=== PATIENT | female | born 1980 | race Caucasian/White ===

== ENCOUNTER 2016-10-13 06:00 | Inpatient (IN) | payer OTHER ==
[2016-10-13] MEDS ORDERED: AMPICILLIN SODIUM 2 GM in NS 100 ML IV ONE (06:51)
[2016-10-13] MEDS ORDERED: TERBUTALINE SULFATE 1 MG/ML VIAL IV PRN (06:51)
[2016-10-13] MEDS ORDERED: OLIVE OIL 118 ML BTL MISC PRN (06:51)
[2016-10-13] MEDS ORDERED: LR 1,000 ML IV PRN (06:51)
[2016-10-13] MEDS ORDERED: EPSOM SALT 454 GM TP PRN (06:51)
[2016-10-13] MEDS ORDERED: IBUPROFEN 600 MG TAB PO PRN (06:51)
[2016-10-13] MEDS ORDERED: OXYTOCIN/RINGERS LACTATE 1,000 ML IV PRN (06:51)
[2016-10-13 07:56] LABS: % IMMATURE GRANULYOCYTES 0.5 % (0.0-1.1); ABSOLUTE IMMATURE GRANULOCYTES 0.04 10^3/uL (0.00-0.10); ADD DIFF? NO; ADD MORPH? NO; ADD SCAN? NO; ATYPICAL LYMPHOCYTE FLAG 10 (0-99); FRAGMENT RBC FLAG 0 (0-99); HEMATOCRIT 40.2 % (38.0-47.0); HEMOGLOBIN 13.8 g/dL (12.6-16.3); LEFT SHIFT FLG 0 (0-99); LIPEMIA HEMOLYSIS FLAG 90 (0-99); MEAN CELL HEMOGLOBIN 31.2 pg (27.9-34.1); MEAN CELL HEMOGLOBIN CONCENTR. 34.3 g/dL (32.4-36.7); MEAN CELL VOLUME 90.7 fL (81.5-99.8); MEAN PLATELET VOLUME 9.9 fL (8.7-11.7); PLATELET CLUMPS FLAG 0 (0-99); PLATELET COUNT 213 10^3/uL (150-400); RED BLOOD CELL COUNT 4.43 10^6/uL (4.18-5.33); RED CELL DISTRIBUTION WIDTH 13.2 % (11.5-15.2)
[2016-10-13] MEDS ORDERED: LR 500 ML IV PRN (08:07)
[2016-10-13] MEDS ORDERED: OXYTOCIN/RINGERS LACTATE 500 ML IV SCH (08:30)
--- NOTE | 2016-10-13 10:04 | GHP ---
[f rep st] PREOP HISTORY AND PHYSICAL DATE OF ADMISSION: 10/13/2016 ADMITTING DIAGNOSIS: Intrauterine at 40-0/7 weeks' gestation, for elective induction of l abor. HISTORY OF PRESENT ILLNESS: The patient is a 36-year-old 3 para 1-0-1-1, with an EDC of that was set by an 8-week ultrasound. She has had good care at [facility] since registration at 8 weeks' gestation, and has progressed to 40-0/7 weeks' gestation. She has had mild contractions, nothing regular, and desires elective induction of labor. Her 1st baby was s pontaneously delivered at 40 weeks, and patient desires to deliver soon. Her course has be en complicated by advanced maternal age. She has had negative Verifi screening and negative ultraso unds and reassuring course, early 1st trimester alcohol use, none now. She had a short in [facility]. History of PIH in labor with her last baby, history of a cervical LEEP with a term delivery since. She has had ultrasounds for growth because her 20-week ultrasound the estimated weigh t was 95th percentile. Followup ultrasound was reassuring. This patient was seen in the office on the and had a Harding catheter placed in the cervix for cervical ripening, and she presented on t he morning of the for Pitocin induction. PAST OBSTETRICAL HISTORY: In November 2009, she had an elective termination. In April of 2015 she had a viable female, 6 pounds 13 ounces, spontaneous labor at 40-3/7 weeks' gestation. She had thick meconium and a tight nuchal cord. Baby eventually did well, and then this is her next pregnan cy. PAST GYNECOLOGICAL HISTORY: She had a normal menstrual triad, with menarche at 13, interval every 2 8 days, length of 5 days. Her periods started again in August of 2015 after the of her daughter , and she was not sure she was in the 1st trimester. In her 1st labor she had elevated blo od pressures, had negative labs. She never developed signs of severe preeclampsia and did not recei ve magnesium; she was just watched carefully. PAST MEDICAL HISTORY: History of anxiety/depression, history of alcohol use, history of a fractured right clavicle twice. PAST SURGICAL HISTORY: She had egg donation in 2012, a cervical LEEP in 2003, dental surgery, tonsils and wisdom teeth extraction, and a d and C with her last baby. She has mil d exercise-induced asthma. ALLERGIES: She is allergic to latex and bees. No known drug allergies. MEDICATIONS: Include vitamins, DHA, and Tums. LABS: She is A positive, antibody negative, RPR nonreactive, rubella immune, hepatitis negative, HI V negative. Cystic fibrosis, SMA, fragile X negative. Pap normal. Gonorrhea and chlamydia normal. She had GBS bacteriuria in her first trimester and is treated today. Verifi was normal. AFP was normal. 1-hour GTT was normal, 120. Hemoglobin 35.8. SOCIAL HISTORY: Patient is . She lives with her . 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 She denies tobacco, had alcohol in the 1st trimester, and none now. No drug use. FAMILY HISTORY: Father of congestive heart failure at age 60. Sister has Yoseph's. Patern al grandfather had alcoholism. Maternal grandmother of breast cancer in her 60s. Paternal gra ndmother had ovarian cancer. OBJECTIVE: VITAL SIGNS: Today she is afebrile. Vital signs are stable. heart tones are in the 120s, reactive, moderate variability, category 1. Contractions are irregular. The patient has a Harding catheter in place. Deferred cervical check at this point. ASSESSMENT AND PLAN: A 36-year-old 3 para 1-0-1-1, at 40 weeks' gestation, for elective ind uction of labor. Patient is on Pitocin per protocol. We will increase the dose to develop a good u terine contraction pattern. I will discontinue the Harding and perform artificial rupture of membrane s when she has a good contraction pattern. The patient does desire an epidural for pain control. /[id number]/MODL
--- NOTE | 2016-10-13 11:00 | OBPROG ---
OBG Labor Progress Note Assessment/Plan: Assessment: 36 y/o @ 40 weeks for IOL doing well Plan: AROM now and will continue to dose pitocin to achieve adequate contractions. Pt will desire an epidural for pain control. 10/13/16 10:59 Subjective: Pt is feeling mild contractions. Good FM. Objective: 10/13/16 07:45 Patient ABO/Rh A POSITIVE 10/13/16 07:45 - SVE Dilation (cm): 5 Effacement (%): 90 Station: -2 Ladd Current Contraction Pattern: Irregular FHR (bpm): 120 FHR Pattern Variability: Moderate FHR Category: 1 Membranes: AROM Amniotic Fluid Color: Clear Oxytocin Orders Assessment - Pre-Induction/Augmentation Assessment Gestational Age: 40 week(s) and 0 day(s) ICD10 Worksheet Patient Problems: Problems Problem Status Onset (spontaneous vaginal delivery) Acute
[2016-10-13] MEDS ORDERED: fentaNYL 2MCG/ML/BUP 0.1% RTU 100 ML BAG EP ONE (12:45)
[2016-10-13] MEDS ORDERED: BUPIVACAINE 0.25% 30 ML SDV ONE (12:46)
[2016-10-13] MEDS ORDERED: PHENYLEPHRINE HCL 100 MCG/ML SYR ONE (12:46)
[2016-10-13] MEDS ORDERED: fentaNYL 100 MCG/2 ML INJ ONE (12:47)
[2016-10-13] MEDS ORDERED: LIDOCAINE 1% 300 MG/30 ML SDV ONE (13:55)
--- NOTE | 2016-10-13 13:55 | OBPROG ---
OBG Labor Progress Note Assessment/Plan: Assessment: 36 y/o @ 40 weeks for IOL doing well Plan: Good cervical progress and status is overall reassuring. Continue pitocin. 10/13/16 10:59 10/13/16 13:54 Subjective: Pt is now comfortable with her epidural. She was feeling increased contraction intensity. Objective: 10/13/16 07:45 Patient ABO/Rh A POSITIVE 10/13/16 07:45 - SVE Dilation (cm): 7 Effacement (%): 90 Station: 0 Ladd Current Contraction Pattern: Regular (Q 4) FHR (bpm): 120 FHR Pattern Variability: Moderate FHR Category: 1 Membranes: AROM Amniotic Fluid Color: Clear Oxytocin Orders Assessment - Pre-Induction/Augmentation Assessment Gestational Age: 40 week(s) and 0 day(s) ICD10 Worksheet Patient Problems: Problems Problem Status Onset (spontaneous vaginal delivery) Acute
[2016-10-13] MEDS ORDERED: MISOPROSTOL 200 MCG TAB ONE (13:56)
[2016-10-13] MEDS ORDERED: OLIVE OIL 118 ML BTL ONE (13:56)
[2016-10-13] MEDS ORDERED: AMMONIA AROMATIC 1 EACH AMP IH ONE (13:56)
[2016-10-13] MEDS: AMPICILLIN SODIUM 1 GM in NS 100 ML IV SCH ×2 (14:00→16:18)
--- NOTE | 2016-10-13 14:20 | PREANESOB ---
Obstetric Pre-Anesthesia Info - General Info Proposed Procedure: Labor and delivery with pitocin. : 3 Para: 1 WBD: 40 - Info Status: Full Term Monitors: External FHR Baseline (bpm): 120 FHR Pattern: Reassuring - Labor Status Cervical Dilation per last OB SVE: 5 Station per last OB SVE: 0 Rupture of Membranes Time: 10:45 Pitocin: In Use Indications for Labor Analgesia: Induction of Labor, Pain Control Labor Epidural: Proposed Anesthesia ROS: Prior labor epidural and general anesthesia. Allergies/Adverse Reactions: Allergy/AdvReac Type Severity Reaction Status Date / Time latex Allergy Verified 04/23/15 10:03 Home Medications: Medication Instructions Recorded Aspirin [Aspirin 81mg (*)] 81 mg PO 10/13/16 Vit/Iron Fumarate/FA 1 each PO DAILY 10/13/16 [ Vitamin Formula Tb] Visit Medications: Generic Name Dose Route Start Last Admin Trade Name Freq PRN Reason Stop Dose Admin Ampicillin Sodium 1 gm/ Sodium 100 mls @ 200 mls/hr 10/13/16 10:52 Chloride IV 11/12/16 10:51 Q4H FRIDA Protocol Lactated Ringer's 1,000 mls @ 0 mls/hr 10/13/16 06:51 Lr IV 04/11/17 06:50 PRN PRN SEE PROTOCOL CONDITIONS Protocol Per Protocol Oxytocin/Lactated Ringer's 1,000 mls @ 150 mls/hr 10/13/16 06:51 Pitocin 20 Units/Lr (Premix) IV PRN PRN Post- bleeding Lactated Ringer's 500 mls @ 500 mls/hr 10/13/16 08:07 Lr IV PRN PRN Maternal Hypotension Oxytocin/Lactated Ringer's 500 mls @ 0 mls/hr 10/13/16 08:30 10/13/16 08:26 Pitocin 30 Units/Lr (Premix) IV 04/11/17 08:29 500 mls CONT FRIDA Administration Protocol Per Protocol Ibuprofen 600 mg 10/13/16 06:51 Motrin PO 04/11/17 06:50 Q6HRS PRN post , inflammation Magnesium Sulfate 454 gm 10/13/16 06:51 Epsom Salt TP 04/11/17 06:50 Q1H PRN perineal discomfort [place]iden Oil 118 ml 10/13/16 06:51 Sweet Oil MISC 04/11/17 06:50 ONCE PRN preneal massage Terbutaline Sulfate 0.25 mg 10/13/16 06:51 Brethine IV 04/11/17 06:50 ONCE PRN Tachysystole Discontinued Medications Generic Name Dose Route Start Last Admin Trade Name Adrienne PRN Reason Stop Dose Admin Ammonia (Aromatic Spirit) Confirm 10/13/16 13:56 Ammonia Aromatic Administered 10/13/16 13:57 Dose 1 each IH .STK-MED ONE Bupivacaine HCl Confirm 10/13/16 12:46 Sensorcaine 0.25% Sdv Administered 10/13/16 12:47 Dose 30 ml .ROUTE .STK-MED ONE Fentanyl Confirm 10/13/16 12:47 Sublimaze Administered 10/13/16 12:48 Dose 100 mcg .ROUTE .STK-MED ONE Fentanyl/Bupivacaine HCl Confirm 10/13/16 12:45 Fentanyl/Bupivacaine/Ns 2 Mcg/Ml 0.1% (Premix Administered 10/13/16 12:46 Dose 100 ml EP .STK-MED ONE Ampicillin Sodium 2 gm/ Sodium 110 mls @ 220 mls/hr 10/13/16 06:51 10/13/16 08:25 Chloride IV 10/13/16 07:20 110 mls ONCE ONE Administration Protocol Lidocaine HCl Confirm 10/13/16 13:55 Lidocaine Hcl 1% Administered 10/13/16 13:56 Dose 300 mg .ROUTE .STK-MED ONE Misoprostol Confirm 10/13/16 13:56 Cytotec Administered 10/13/16 13:57 Dose 1,000 mcg .ROUTE .STK-MED ONE [place]iden Oil Confirm 10/13/16 13:56 Sweet Oil Administered 10/13/16 13:57 Dose 118 ml .ROUTE .STK-MED ONE Phenylephrine HCl Confirm 10/13/16 12:46 Neosynephrine Administered 10/13/16 12:47 Dose 1,000 mcg .ROUTE .STK-MED ONE - Anesthesia History Response to Local Anesthetics: Normal Anesthesia & Operative History: No Prior Problems Family Anesthesia History: Negative - Social History Substance Use/Abuse: Denies - Focused Exam Blood Pressure: 128/80 Heart Rate: 70 Respiratory Rate: 16 Height/Weight (Nursing): Height 160.02 cm Weight 79.379 kg Physical Exam: Within normal limits. ASA Status: II Labs: 10/13/16 07:45 Patient ABO/Rh A POSITIVE 10/13/16 07:45 - Plan Anesthetic Plan: CSE Consent Signed and on Chart: Yes Patient/Guardian Understands and Agrees to Plan: Yes Urgent/Emergent Case: Anes eval completed preop but documented later for safe timely pt care (Written consent signed after epidural.)
--- NOTE | 2016-10-13 14:24 | POSTANESTH ---
Post Anesthetic Evaluation Cardiovascular Status: Normal, Stable Respiratory Status: Normal, Stable, Similar to Pre-op Cond. Level of Consciousness/Mental Status: Can Participate in Eval, Alert and Oriented Pain Control: Adequate, Prn Tx Ordered Nausea/Vomiting Control: Adequate, Prn Tx Ordered Complications Possibly Related to Anesthesia: None Noted
[2016-10-13] MEDS ORDERED: PHENYLEPHRINE HCL 100 MCG/ML SYR IVP PRN (14:25)
[2016-10-13] MEDS ORDERED: ONDANSETRON 4 MG/2 ML VIAL IVP PRN (14:25)
[2016-10-13] MEDS ORDERED: LR 500 ML IV SCH (14:30)
[2016-10-13] MEDS ORDERED: fentaNYL 2MCG/ML/BUP 0.1% RTU 100 ML EP SCH (14:30)
[2016-10-13] MEDS ORDERED: ACETAMINOPHEN 325 MG TAB PO PRN (15:47)
[2016-10-13] MEDS ORDERED: HYDROCODONE/APAP 5/325 TAB PO PRN (15:47)
[2016-10-13] MEDS ORDERED: SIMETHICONE 80 MG TAB CHEW PO PRN (15:47)
[2016-10-13] MEDS ORDERED: HYDROCORTISONE 0.5% CREAM TP PRN (15:47)
--- NOTE | 2016-10-13 15:52 | OBDEL ---
Info Type: Vaginal GBS+: Yes Antibiotic Used for + GBS: Ampicillin Number of Antibiotic Doses Given: 2 Indications for Delivery: Elective (at 40 weeks) Vaginal Delivery - Labor and Delivery Onset of Contractions Date: 10/13/16 Onset of Contractions Time: 11:30 Onset of Contractions Type: Induced Rupture of Membranes Date: 10/13/16 Rupture of Membranes Time: 10:45 Rupture of Membranes Type: Artificial Amniotic Fluid Color: Clear Dilation Complete Date: 10/13/16 Dilation Complete Time: 15:03 Placenta Delivery Date: 10/13/16 Placenta Delivery Time: 15:27 Total Hours of Labor: 3 Non-surgical Procedures: Amniotomy Laceration: 1st Degree Repair: 2-0, Vicryl Vaginal Sponge Count Correct: Yes Vaginal Needle Count Correct: Yes Vaginal Sweep Performed: Yes EBL: 400 Delivery Events: Retained Placenta (requiring manual extraction of the placenta , ultrasound guided bedside currettage and pitocin and cytotec ID 800 mg), Other (Specify) - Medications Labor Augmentation/Induction Methods Used: Pitocin Labor Augmentation/Induction Indication: Elective (@ 40 weeks) Data Ladd Delivery Date: 10/13/16 Delivery Time: 15:10 GENEVIEVE: 10/13/16 Gestational Age: 40 week(s) and 0 day(s) Sex of Infant: Female Score (1 Min): 8 Score (5 Min): 9 ICD10 Worksheet Patient Problems: Problems Problem Status Onset (spontaneous vaginal delivery) Acute
[2016-10-13] MEDS: IBUPROFEN 600 MG TAB PO PRN ×2 (16:01→22:11)
[2016-10-13] MEDS ORDERED: ceFAZolin 2 GM in NS 100 ML IV ONE (18:31)
[2016-10-13] MEDS ORDERED: ceFAZolin 2 GM/DEXTROSE 100 ML IV ONE (19:00)
[2016-10-13] MEDS: DOCUSATE SODIUM 100 MG CAP PO PRN (22:11)
[2016-10-14] MEDS: IBUPROFEN 600 MG TAB PO PRN ×4 (04:55→23:17)
[2016-10-14 08:54] VITALS: O2SAT 96
[2016-10-14] MEDS: DOCUSATE SODIUM 100 MG CAP PO PRN ×2 (10:53→23:17)
[2016-10-15] MEDS: IBUPROFEN 600 MG TAB PO PRN (07:06)
--- NOTE | 2016-10-15 07:48 | SOAPPROG ---
SOAP Progress Note Assessment/Plan: Assessment: ppd# 2 s/p breast feeding uncomplicated post course Plan: discharge instructions and routine post care 10/15/16 07:44 Subjective: patient is doing well. was seen yesterday but a note wasn't written. baby cluster fed last night so patient is tired but mood is fine. denies headache and changes in vision, nausea or vomiting. ambulating. voiding without difficulty. Objective: Vital Signs Temp Pulse Resp BP Pulse Ox 36.9 C 74 16 127/86 H 96 10/14/16 20:09 10/14/16 20:09 10/14/16 20:09 10/14/16 20:09 10/14/16 20:09 Laboratory Results 10/14/16 05:00 10/14/16 10/15/16 10/16/16 05:59 05:59 05:59 Output Total 400 Balance -400 Physical Exam - Physical Exam General Appearance: WD/WN, alert, no apparent distress Neck: non-tender, full range of motion Respiratory: chest non-tender, lungs clear, normal breath sounds Cardiac/Chest: normal peripheral pulses, regular rate, rhythm Abdomen: normal bowel sounds, non-tender, soft, other (fundus firm and non tender) Skin: normal color, warm/dry Extremities: normal range of motion, non-tender, normal inspection, normal capillary refill Neuro/Psych: no motor/sensory deficits, alert, normal mood/affect, oriented x 3 ICD10 Worksheet Patient Problems: Problems Problem Status Onset (spontaneous vaginal delivery) Acute
--- NOTE | 2016-10-15 07:53 | OBGCSDC ---
General Delivery Information - General Info : 3 Para: 2 Delivery Physician/CNM: Lory Chaudhary Labs: Patient ABO/Rh A POSITIVE 10/13/16 07:45 Hct 37.7 % (38.0-47.0) L 10/14/16 05:00 Vaginal - Diagnosis Labor: Induced Rupture of Membranes Type: Artificial Amniotic Fluid Color: Clear Laceration: 1st Degree Repair: 2-0, Vicryl Delivery Events: Retained Placenta (requiring manual extraction of the placenta , ultrasound guided bedside currettage and pitocin and cytotec NV 800 mg), Other (Specify) - Operations/Procedures Non-surgical Procedures: Amniotomy L&D Analgesia/Anesthesia Type: Epidural - Hospital Course Antepartum: ama, alcohol use in first trimester, short interval, h/o leep and subsequent full term delivery Intrapartum: alvarez, admit /-2, ptocin, arom, epidural, rapid progress, pushed x 1 : breast feeding is going well. normal lochia. mood good. - Delivery Non-surgical Procedures: Amniotomy L&D Analgesia/Anesthesia Type: Epidural Data Ladd Delivery Date: 10/13/16 Delivery Time: 15:10 GENEVIEVE: 10/13/16 Gestational Age: 40 week(s) and 2 day(s) Sex of : Female Weight (gm): 2574 g Score (1 Min): 8 Score (5 Min): 9 Discharge Information - Discharge Information Discharge Medications: Ibuprofen, Vitamins Condition: Good Instruction/Follow Up: Four Weeks, Six Weeks Discharge Physician/CNM: Vanessa Cope
[2016-10-15 08:56] VITALS: BP 138/91; PULSE 84; RESP 17; TEMP 97.9
== END 2016-10-15 11:20 | disposition home or self-care (01) | DRG 767 ==
LOC: FLD 06:10 → FOB 18:09
PROVIDERS: ADMIT Obstetrics & Gynecology; ATTEND Obstetrics & Gynecology
DX: O48.0 Post-term pregnancy (principal); O70.0 First degree perineal laceration during delivery; O99.824 Streptococcus B carrier state complicating childbirth; O69.1XX0 Labor and delivery complicated by cord around neck, with compression, not applicable or unspecified; O73.0 Retained placenta without hemorrhage; Z3A.40 40 weeks gestation of pregnancy; Z37.0 Single live birth
CPT/HCPCS: J0290; J0690; J2370; J2590; J3010